=== PATIENT | male | born 1980 | race Caucasian/White ===

== ENCOUNTER 2017-08-15 17:13 | Emergency (ER) | payer SELFPAY ==
--- NOTE | 2017-08-15 19:07 | ER ---
Nurse's Notes [facility] Name: Jordy Herrmann Jr Age: 37 yrs Sex: Male : 1980 Arrival Date: 08/15/2017 Time: 17:19 Bed 14 Private MD: Diagnosis: Hemorrhoid Presentation: 08/15 17:21 Presenting complaint: Presenting complaint: Patient states: Reports "a bump in my butt aj hole". Transition of care: patient was not received from another setting of care. Onset of symptoms was August 08, 2017. Risk Assessment: Do you want to hurt yourself or someone else? Patient reports no desire to harm self or others. Care prior to arrival: None. 17:21 Method Of Arrival: Ambulatory aj 17:21 Acuity: TODD 3 aj 19:25 Initial Sepsis Screen: Does the patient meet any 2 criteria? No. Patient's initial bs1 sepsis screen is negative. Does the patient have a suspected source of infection? No. Patient's initial sepsis screen is negative. Triage Assessment: 17:23 General: Appears in no apparent distress. uncomfortable, Behavior is calm, cooperative, aj appropriate for age. Pain: Complains of pain in anus. Neuro: Level of Consciousness is awake, alert, obeys commands, Oriented to person, place, time, situation, Appropriate for age. Respiratory: Airway is patent Respiratory effort is even, unlabored, Respiratory pattern is regular, symmetrical. GI: Reports pain to rectum. Derm: Skin is intact, is healthy with good turgor, Skin is pink, warm \\T\\ dry. normal. Historical: - Allergies: 17:22 No Known Allergies; aj - Home Meds: 17:22 None [Active]; aj - PMHx: 17:22 None; aj - PSHx: 17:22 Metal plate to left side of face; aj - Immunization history:: Adult Immunizations up to date. - Social history:: Smoking status: Patient uses tobacco products, smokes one pack cigarettes per day. - Ebola Screening: : Patient negative for fever greater than or equal to 101.5 degrees Fahrenheit, and additional compatible Ebola Virus Disease symptoms Patient denies exposure to infectious person Patient denies travel to an Ebola-affected area in the 21 days before illness onset No symptoms or risks identified at this time. Screenin:30 Abuse screen: Denies threats or abuse. Denies injuries from another. Nutritional sg screening: No deficits noted. Tuberculosis screening: No symptoms or risk factors identified. Fall Risk None identified. Assessment: 18:30 Reassessment: Patient appears in no apparent distress at this time. Patient and/or sg family updated on plan of care and expected duration. Pain level reassessed. Patient is alert, oriented x 3, equal unlabored respirations, skin warm/dry/pink. awaiting evaluation by DARIELA NARVAEZ. 19:05 Reassessment: Report received from RICHARD Michael. bs1 19:05 General: Appears in no apparent distress. uncomfortable. Pain: Complains of pain in bs1 anus, rectum. Neuro: Level of Consciousness is awake, alert, obeys commands, Oriented to person, place, time, situation. Cardiovascular: Denies chest pain, shortness of breath, Heart tones S1 S2 present Capillary refill < 3 seconds Patient's skin is warm and dry. Respiratory: Airway is patent Trachea midline Respiratory effort is even, unlabored, Breath sounds are clear bilaterally. GI: Abdomen is round Bowel sounds present X 4 quads. GI: Reports pain in rectum. : No signs and/or symptoms were reported regarding the genitourinary system. EENT: No signs and/or symptoms were reported regarding the EENT system. Derm: Skin is intact. Musculoskeletal: No signs and/or symptoms reported regarding the musculoskeletal system. Vital Signs: 17:23 BP 149 / 91; Pulse 87; Resp 18; Temp 97.9; Pulse Ox 96% on R/A; Weight 113.4 kg; Height aj 6 ft. 2 in. (187.96 cm); 18:30 BP 146 / 90; Pulse 75; Resp 17; Pulse Ox 98% on R/A; Pain 6/10; sg 19:20 BP 141 / 95; Pulse 72; Resp 16; Temp 98.4(O); Pulse Ox 98% on R/A; Pain 6/10; bs1 17:23 Body Mass Index 32.10 (113.40 kg, 187.96 cm) aj ED Course: 17:19 Patient arrived in ED. sb2 17:22 Triage completed. aj 17:23 Arm band placed on left wrist. Patient placed in waiting room, Patient notified of wait aj time. 18:25 Ventura, Alec, RN is Primary Nurse. sg 18:29 Pollo Salcedo NP is PHCP. pm1 18:29 Nixon Naqvi MD is Attending Physician. pm1 18:30 Patient has correct armband on for positive identification. Bed in low position. Call sg light in reach. Side rails up X2. Pulse ox on. NIBP on. 19:06 Eric Underwood MD is Referral Physician. pm1 19:25 No provider procedures requiring assistance completed. Patient did not have IV access bs1 during this emergency room visit. Administered Medications: 19:25 Drug: [place] 10 mg-325 mg 1 tabs Route: PO; bs1 19:32 Follow up: Response: No adverse reaction bs1 Outcome: 19:06 Discharge ordered by MD. pm1 19:26 Discharged to home ambulatory, with significant other. bs1 19:26 Condition: stable 19:26 Discharge instructions given to patient, significant other, Instructed on discharge instructions, follow up and referral plans. medication usage, Demonstrated understanding of instructions, follow-up care, medications, Prescriptions given X 3. 19:38 Patient left the ED. bs1 Signatures: Alec Ventura RN Loreta Lee RN RN aj Marinas, Patrick, NP NETWORK SYSTEMS OPERATOR pm1 Brittny Krishna RN RN bs1 Dena Barfield sb2 Corrections: (The following items were deleted from the chart) 17:23 17:21 Onset of symptoms was August 15, 2017 erin khan
--- NOTE | 2017-08-15 19:07 | EDPHYS ---
Physician Documentation [facility] Name: Jordy Herrmann Jr Age: 37 yrs Sex: Male : 1980 Arrival Date: 08/15/2017 Time: 17:19 Bed 14 Private MD: ED Physician Nixon Naqvi HPI: 08/15 19:00 This 37 yrs old Male presents to ER via Ambulatory with complaints of Rectal pm1 Pain. 19:00 The patient presents to the emergency department with pain in the rectal area. Onset: pm1 The symptoms/episode began/occurred 3 day(s) ago. Context: the patient has no known special context relating to the rectal area complaint(s). Modifying factors: The symptoms are alleviated by nothing, The symptoms are aggravated by bowel movement, sitting position. Associate signs and symptoms: Pertinent negatives: abdominal pain, constipation, diarrhea, fever, lower GI bleeding, vomiting. The patient has not experienced similar symptoms in the past. The patient has experienced similar episodes in the past, a few times, self resolved. The patient has not recently seen a physician. Historical: - Allergies: 17:22 No Known Allergies; aj - Home Meds: 17:22 None [Active]; aj - PMHx: 17:22 None; aj - PSHx: 17:22 Metal plate to left side of face; aj - Immunization history:: Adult Immunizations up to date. - Social history:: Smoking status: Patient uses tobacco products, smokes one pack cigarettes per day. - Ebola Screening: : Patient negative for fever greater than or equal to 101.5 degrees Fahrenheit, and additional compatible Ebola Virus Disease symptoms Patient denies exposure to infectious person Patient denies travel to an Ebola-affected area in the 21 days before illness onset No symptoms or risks identified at this time. ROS: 08/16 03:25 Constitutional: Negative for fever, chills, and weight loss, Cardiovascular: Negative pm1 for chest pain, palpitations, and edema, Respiratory: Negative for shortness of breath, cough, wheezing, and pleuritic chest pain, Back: Negative for injury and pain. : Negative for injury, bleeding, discharge, and swelling, MS/Extremity: Negative for injury and deformity, Skin: Negative for injury, rash, and discoloration, Neuro: Negative for headache, weakness, numbness, tingling, and seizure. Abdomen/GI: Positive for rectal pain, Negative for rectal bleeding. Abdomen/GI: Negative for abdominal pain, nausea, vomiting, and diarrhea. Exam: 03:25 Constitutional: This is a well developed, well nourished patient who is awake, alert, pm1 and in no acute distress. Head/Face: Normocephalic, atraumatic. 03:25 Eyes: Pupils equal round and reactive to light, extra-ocular motions intact. Lids and lashes normal. Conjunctiva and sclera are non-icteric and not injected. Cornea within normal limits. Periorbital areas with no swelling, redness, or edema. Neck: Trachea midline, no thyromegaly or masses palpated, and no cervical lymphadenopathy. Supple, full range of motion without nuchal rigidity, or vertebral point tenderness. No Meningismus. Chest/axilla: Normal chest wall appearance and motion. Nontender with no deformity. No lesions are appreciated. Cardiovascular: Regular rate and rhythm with a normal S1 and S2. No gallops, murmurs, or rubs. Normal PMI, no JVD. No pulse deficits. Respiratory: Lungs have equal breath sounds bilaterally, clear to auscultation and percussion. No rales, rhonchi or wheezes noted. No increased work of breathing, no retractions or nasal flaring. 03:25 Back: No spinal tenderness. No costovertebral tenderness. Full range of motion. Skin: Warm, dry with normal turgor. Normal color with no rashes, no lesions, and no evidence of cellulitis. MS/ Extremity: Pulses equal, no cyanosis. Neurovascular intact. Full, normal range of motion. 03:25 Head/face: Exam is negative for swelling. 03:25 Abdomen/GI: Inspection: abdomen appears normal, Bowel sounds: normal, Palpation: abdomen is soft and non-tender, Rectal exam: hemorrhoid(s), external, with inflammation, with pain, without bleeding, without thrombosis, sub centimeter at 5 o'clock. 03:25 Neuro: Orientation: is normal, Motor: moves all fours, Gait: is steady, at a normal pace, without difficulty. Vital Signs: 08/15 17:23 BP 149 / 91; Pulse 87; Resp 18; Temp 97.9; Pulse Ox 96% on R/A; Weight 113.4 kg; Height aj 6 ft. 2 in. (187.96 cm); 18:30 BP 146 / 90; Pulse 75; Resp 17; Pulse Ox 98% on R/A; Pain 6/10; sg 19:20 BP 141 / 95; Pulse 72; Resp 16; Temp 98.4(O); Pulse Ox 98% on R/A; Pain 6/10; bs1 17:23 Body Mass Index 32.10 (113.40 kg, 187.96 cm) MDM: 18:42 Patient medically screened. pm1 19:05 Data reviewed: vital signs. Data interpreted: Pulse oximetry: on room air is 96 %. pm1 Interpretation: normal. Counseling: I had a detailed discussion with the patient and/or guardian regarding: the historical points, exam findings, and any diagnostic results supporting the discharge/admit diagnosis, the need for outpatient follow up, a colorectal specialist, a general surgeon, to return to the emergency department if symptoms worsen or persist or if there are any questions or concerns that arise at home. Administered Medications: 19:25 Drug: [place] 10 mg-325 mg 1 tabs Route: PO; bs1 19:32 Follow up: Response: No adverse reaction bs1 Disposition: 08/15/17 19:06 Discharged to Home. Impression: Hemorrhoid. - Condition is Stable. - Discharge Instructions: Hemorrhoids. - Prescriptions for Anusol- HC 2.5 % Rectal Cream - Apply to affected area 1 application by TOPICAL route every 8 hours As needed; 30 gram. Colace 100 mg Oral Tablet - take 1 tablet by ORAL route every 12 hours; 14 tablet. Tramadol 50 mg Oral Tablet - take 1 tablet by ORAL route every 8 hours as needed; 12 tablet. - Medication Reconciliation Form, Thank You Letter, Prescription Opioid Use form. - Follow up: Emergency Department; When: As needed; Reason: Worsening of condition. Follow up: Eric Underwood MD; When: 2 - 3 days; Reason: Recheck today's complaints, Continuance of care, Re-evaluation by your physician. - Problem is new. - Symptoms have improved. Addendum: 08/17/2017 21:36 Co-signature as Attending Physician, Nixon Naqvi MD. r n Signatures: Loreta Rachel RN RN aj Nieto, Roman, MD MD rn Marinas, Patrick, BINDERY PRODUCTION MANAGER BINDERY PRODUCTION MANAGER pm1 Krishna, Brittny, RN RN bs1 Corrections: (The following items were deleted from the chart) 08/15 19:38 19:06 08/15/2017 19:06 Discharged to Home. Impression: Hemorrhoid. Condition is Stable. bs1 Forms are Medication Reconciliation Form, Thank You Letter, Antibiotic Education, Prescription Opioid Use. Follow up: Emergency Department; When: As needed; Reason: Worsening of condition. Follow up: Eric Underwood; When: 2 - 3 days; Reason: Recheck today's complaints, Continuance of care, Re-evaluation by your physician. Problem is new. Symptoms have improved. pm1
[2017-08-15] MEDS ORDERED: HYDROCODONE/APAP 10/325 TAB ONE (19:13)
[2017-08-15 19:43] VITALS: BP 141/95; TEMP 98.4; O2SAT 98
== END 2017-08-15 19:38 | disposition home or self-care (01) ==
LOC: ER 17:13
DX: K64.4 Residual hemorrhoidal skin tags (principal); F17.210 Nicotine dependence, cigarettes, uncomplicated
CPT/HCPCS: 99283